=== PATIENT | female | born 1990 | race African-American/Black ===

== ENCOUNTER 2018-01-01 19:43 | Emergency (ER) | payer OTHER ==
[~2018-01-01] VITALS: Ht 165.1 cm; Wt 68.0 kg
[2018-01-01] MEDS ORDERED: NAPROSYN500 MG PO (20:13)
[2018-01-01 20:42] VITALS: BP 137/93
== END 2018-01-01 20:42 | disposition home or self-care (01) ==
LOC: ER 19:43
DX: S93.492A Sprain of other ligament of left ankle, initial encounter (principal); W01.0XXA Fall on same level from slipping, tripping and stumbling without subsequent striking against object, initial encounter; Y93.89 Activity, other specified; Y92.89 Other specified places as the place of occurrence of the external cause; Y99.8 Other external cause status

== ENCOUNTER 2019-06-11 19:24 | Emergency (ER) | payer OTHER ==
[~2019-06-11] VITALS: Ht 165.1 cm; Wt 70.3 kg
[~2019-06-11 19:24] MED LIST: NAPROSYN500 MG PO
[2019-06-11 19:25] VITALS: BP 131/56
[2019-06-11] MEDS ORDERED: BUTALB-APAP-CA1 EACH PO (20:03)
== END 2019-06-11 20:15 | disposition home or self-care (01) ==
LOC: ER 19:24
DX: F07.81 Postconcussional syndrome (principal); Z88.6 Allergy status to analgesic agent